=== PATIENT | female | born 1945 | race Caucasian/White ===

== ENCOUNTER → 2019-05-07 | Outpatient (CLI) | payer MEDICARE ==
--- NOTE | 2019-05-07 16:41 | Diagnostic Imaging Report ---
INDICATION: Anal cancer, initial staging. TECHNIQUE: Serum blood glucose level at the time of injection is 96 mg/dL. Patient was administered 15.5 mCi F-18 FDG intravenously in the right antecubital location and PET imaging was performed from the top of skull to mid thighs. Noncontrast CT was performed for attenuation correction and anatomic correlation. COMPARISON: No prior PET/CT studies are available for comparison. FINDINGS: Symmetric activity throughout the brain is noted. Soft tissues of the neck are unremarkable. There is an irregular mass in the left upper lobe measuring 4.1 cm which does show hypermetabolism. SUV max is approximately 14. Hypermetabolic lymph node in the prevascular region measures 15 mm short axis and shows SUV max of 7.7. No other hypermetabolic lymph nodes are detected. No other suspicious pulmonary lesions are seen. There is a normal physiologic activity within the gastrointestinal and genitourinary tract. Patient does appear to have an aortofemoral graft on the left. No suspicious areas of hypermetabolism in the abdomen or pelvis are identified. IMPRESSION: Hypermetabolic left upper lobe mass with associated hypermetabolic prevascular lymph node. This could represent a primary lung neoplasm with metastatic mediastinal lymph node. No other suspicious regions of hypermetabolism are identified. Dictated by: Dictated on workstation # [id number]
== END ==
LOC: RAD 13:08
PROVIDERS: ATTEND Internal Medicine Hematology & Oncology
DX: C21.0 Malignant neoplasm of anus, unspecified (principal)

== ENCOUNTER → 2019-09-10 | Outpatient (CLI) | payer MEDICARE ==
--- NOTE | 2019-09-10 15:15 | Diagnostic Imaging Report ---
EXAMINATION: PET/CT. INDICATION: Anal carcinoma. TECHNIQUE: After intravenous administration of 15.7 mCi of F18-FDG into the right antecubital fossa, a series of overlapping emission and transmission PET images was obtained. In the coronal, transaxial and sagittal planes, the area imaged extended from the skull base through the upper thighs. Height: 5'7" Weight: 180 lbs. Blood glucose: 105. FINDINGS: The previous PET/CT exam of 05/07/2019 noted a 4.1 cm irregular mass in the left upper lobe. This did have increased hypermetabolic activity with a maximum SUV of 14. There was also a 15 mm prevascular node with a maximum SUV of 7.7. On this exam, the mass in the left upper lobe has decreased in size and hypermetabolic activity. This mass now measures 3.7 cm in maximum dimension with a maximum SUV of 5.5. The prevascular node seen on the prior study has also decreased in size and now measures 8 mm. The maximum SUV associated with this finding is now only 3.0; however, in the interval since the prior study, a diffuse alveolar/interstitial infiltrate has developed in the region of the mass. The infiltrate involves both the superior segment of the left lower lobe and the left upper lung. This new parenchymal abnormality is hypermetabolic with a maximum SUV of 5.7; however, I suspect it is more likely due to pneumonia/atelectasis than neoplasm. Even so, a short-term (three-month) follow-up CT chest exam would be recommended for further study. A small alveolar/interstitial infiltrate has also developed in the right upper lung. This too is most likely due to mild pneumonia/atelectasis. There is no pleural effusion identified. There is no other hypermetabolic activity to suggest the presence of malignancy. Physiologic activity is again seen in the brain, the heart, the kidneys, the bowel, and the bladder. The CT images fail to show any evidence for an acute abnormality. There is no pelvic mass or free fluid collection. The intracranial contents are unremarkable for a mass or hemorrhage. IMPRESSION: 1. The hypermetabolic mass in the left upper lobe and the prevascular node seen on the previous exam have diminished in size and hypermetabolic activity. 2. However, a new alveolar/interstitial infiltrate has developed about the mass involving both the left upper lobe and the superior segment of the left lower lobe. This parenchymal abnormality is hypermetabolic but is more likely due to pneumonia/atelectasis than to neoplasm. Recommendations as above. 3. There is no other hypermetabolic activity to suggest the presence of malignancy. 4. There is no acute abnormality of the abdomen or pelvis noted otherwise. Dictated by: Dictated on workstation # [id number]
== END ==
LOC: RAD 09:00
PROVIDERS: ATTEND Internal Medicine Hematology & Oncology
DX: C21.0 Malignant neoplasm of anus, unspecified (principal); G93.89 Other specified disorders of brain
CPT/HCPCS: 78815; A9552

== ENCOUNTER → 2021-05-17 | Outpatient (CLI) | payer MEDICARE, OTHER ==
--- NOTE | 2021-05-17 12:10 | Diagnostic Imaging Report ---
INDICATION: Anal carcinoma. Serum blood glucose level at the time of injection is 105 mg/dL. The patient was administered 13.0 mCi F-18 FDG intravenously in the right antecubital location and PET imaging was performed from the top of the skull to mid thighs. Noncontrast CT was also performed for attenuation correction and anatomic correlation. CORRELATION is made with prior PET/CT study from 09/10/2019. There is symmetric activity throughout the brain. Soft tissues of the neck are unremarkable. The hypermetabolic soft tissue mass in the left upper lobe continues to decrease in size, now measuring 2.8 cm transverse compared with 3.7 cm on prior exam. No hypermetabolic activity associated with the mass is seen on today's study. In addition, the significant surrounding infiltrate in the left upper lobe as well as a portion of the superior segment of the left lower lobe has significantly improved with only minimal residual remaining. No hilar or mediastinal hypermetabolism is seen. However, patient has developed expansile rib lesions bilaterally. Expansile destructive lesion of the right posterior 7th rib has developed and demonstrates an SUV max of 8.9. There is also an expansile lesion of the right posterior 12th rib which demonstrates some hypermetabolism. There is a destructive lesion of the right lateral 9th rib with an SUV max of 5.0. An expansile lesion of the left lateral 8th rib has an SUV max of 7.5. Physiologic activity throughout the gastrointestinal and genitourinary tracts of the abdomen and pelvis is noted. No other significant abnormality is seen. The patient does have an aorta to left femoral graft. IMPRESSION: 1. There has been decrease in size of left upper lobe lung mass as well as a significant decrease in the amount of surrounding infiltrate in the left upper lobe as well as superior segment left lower lobe. The degree of hypermetabolism involving the left upper lobe has significantly decreased as well. 2. However, the patient has developed numerous bilateral expansile and destructive rib lesions which are hypermetabolic and suggestive of metastatic disease. Dictated by: Dictated on workstation # [id number]
== END ==
LOC: RAD 08:50
PROVIDERS: ATTEND Internal Medicine Hematology & Oncology
DX: C21.0 Malignant neoplasm of anus, unspecified (principal); M89.9 Disorder of bone, unspecified; R91.8 Other nonspecific abnormal finding of lung field
CPT/HCPCS: 78815; A9552

== ENCOUNTER → 2023-01-02 | Outpatient (CLI) | payer MEDICARE ==
[~2023-01-02] MED LIST: CATHETER FLUSH 10 ML SYR IVP PRN
--- NOTE | 2023-01-02 19:01 | Diagnostic Imaging Report ---
INDICATION: Subsequent staging, non-small cell lung carcinoma. TECHNIQUE: Serum blood glucose level at the time of injection was 76 mg/dL. Patient was administered 9.9 mCi F-18 FDG intravenously in the left antecubital location, and PET imaging was performed from the top of the skull to mid thighs. Noncontrast CT was also performed for attenuation correction and anatomic correlation. COMPARISON: Correlation is made with prior PET/CT study from 05/17/2021. FINDINGS: There is symmetric activity throughout the brain. Soft tissues of the neck are unremarkable. Soft tissue density in the left upper lobe adjacent to the aortic arch does not show FDG avidity. No mediastinal or hilar hypermetabolism is identified. Physiologic activity throughout the GI and tracts of the abdomen and pelvis is noted. No hypermetabolic foci are identified. There is no hypermetabolic abdominal or pelvic lymphadenopathy. The previously noted expansile hypermetabolic ribs are again noted; however, these do not show as much FDG avidity on today's study. Only low-level activity is identified on today's study. No new abnormality is detected. IMPRESSION: Overall improved PET/CT study since prior examination from 05/17/2021. There is significant reduction in FDG avidity of the expansile rib lesions bilaterally. No new lesions are detected. No thoracic, abdominal, or pelvic hypermetabolic lymphadenopathy is detected. Dictated by: Dictated on workstation # [id number]
== END ==
LOC: RAD 11:03
PROVIDERS: ATTEND Internal Medicine Hematology & Oncology
DX: C34.12 Malignant neoplasm of upper lobe, left bronchus or lung (principal)
CPT/HCPCS: 78815; 82947; A9552